=== PATIENT | male | born 1955 | race Caucasian/White ===

== ENCOUNTER 2017-05-16 09:20 | Day surgery (SDC) | payer OTHER ==
[2017-05-10 14:17] VITALS: BMI 26.6
[2017-05-16] MEDS ORDERED: CARBACHOL 0.01% INTRA-OCULAR 1.5 ML VIAL ONE (09:30)
[2017-05-16] MEDS ORDERED: BSS (NA/CA/MG/K) BALANCED SALT SOLUTION OPHTH SOLN 15 ML BOTTLE ONE (09:30)
[2017-05-16 09:51] VITALS: TEMP 97.5
[2017-05-16] MEDS: PHENYLEPHRINE 2.5% OPHTH SOLN 15 ML BOTTLE ONE ×3 (10:00→10:10)
[2017-05-16] MEDS: TROPICAMIDE 1% OPHTH SOLN 15 ML BOTTLE ONE ×3 (10:00→10:10)
[2017-05-16] MEDS: CIPROFLOXACIN 0.3% EYE DROPS 5 ML BOTTLE ONE ×2 (10:00→10:05)
[2017-05-16] MEDS: CYCLOPENTOLATE 2% OPHTH SOLN 2 ML BOTTLE ONE ×3 (10:00→10:10)
[2017-05-16] MEDS ORDERED: CIPROFLOXACIN 0.3% EYE DROPS 5 ML BOTTLE OS ONE (10:10)
[2017-05-16] MEDS ORDERED: MIDAZOLAM HCL 2 MG/2 ML SINGLE DOSE VIAL ONE (11:24)
[2017-05-16 12:40] VITALS: BP 98/68; PULSE 82
--- NOTE | 2017-05-16 16:07 | OP ---
DATE OF OPERATION: 05/16/2017 OPERATIVE PROCEDURE: Lens phacoemulsification with posterior chamber intraocular lens placement left eye. PREOPERATIVE DIAGNOSIS: Visually significant cataract of left eye. POSTOPERATIVE DIAGNOSIS: Visually significant cataract of left eye. SURGEON: Carter Owens M.D. ANESTHESIA: MAC PROCEDURE: The patient was brought to the operating room and placed under monitored anesthesia care by Anesthesia. A drop of tetracaine was then placed over the left eye. The patient was then prepped and draped in the usual sterile manner. A speculum was then placed over the left eye. The eye was then well irrigated with copious amounts of BSS (balanced salt solution). The operating microscope was then moved into position. A paracentesis was performed using a 15-degree blade. At this point 0.5 mL of 1% preservative-free lidocaine was injected into the anterior chamber. Amvisc Plus was then injected into the anterior chamber. A clear corneal incision was then formed using a 2.2-mm keratome. A capsulorrhexis was then performed in a continuous circular fashion beginning with a cystotome and completed with Utrata forceps. Hydrodissection was then performed using BSS on a cannula. The phaco probe was then introduced through the corneal wound, and the cataract was removed using the phaco-chop technique. Approximately 3 seconds of absolute phaco time was used. The remaining cortex was then removed using irrigation and aspiration with an I/A probe. The capsule was then filled with regular Amvisc, and the capsule was noted to be intact. A previously selected foldable posterior chamber intraocular lens was then injected into the capsule through the corneal wound using a lens injector. It was then dialed into position using a Sinskey hook. The Amvisc was then removed using irrigation and aspiration. Miostat was then injected through the paracentesis to constrict the pupil. The paracentesis and corneal wound were then hydrated and noted to be watertight. A drop of Maxitrol was then placed over the eye. The speculum was removed and clear shield was taped over the eye. The patient tolerated the procedure well, and there were no surgical complications. The patient was asked to follow up in my office the next day. CARTER OWENS M.D. [id number]
== END 2017-05-16 12:45 | disposition home or self-care (01) ==
LOC: FASU 09:20
PROVIDERS: ATTEND Ophthalmology
PROC: 08RK3JZ Replacement of Left Lens with Synthetic Substitute, Percutaneous Approach (ICD-10-PCS; principal; 2017-05-16 11:43)
DX: H26.8 Other specified cataract (principal)
CPT/HCPCS: 82962

== ENCOUNTER 2017-05-16 18:46 | Emergency (ER) | payer OTHER ==
[2017-05-16] MEDS ORDERED: ONDANSETRON *ODT* 4 MG TABLET SL ONE (19:01)
--- NOTE | 2017-05-16 19:01 | PDOC ---
History of Present Illness - General History Source: Patient Exam Limitations: No Limitations - History of Present Illness Initial Comments: 05/16/17 19:27 The patient is a 61 year old male, with a significant past medical history of autoimmune pancreatitis, diabetes, and hypertension, who presents to the emergency department, s/p cataract surgery at noon with nausea, vomiting, and dizziness. The patient reports that he has had similar symptoms before when on Fentanyl. He reports not eating before his four episodes of emesis. He denies any recent fevers, chills, headache or dizziness. He denies any recent nausea, vomit, diarrhea or constipation. He denies any recent chest pain or shortness of breath. He denies any recent dysuria, frequency, urgency or hematuria. PAST MEDICAL HISTORY: autoimmune pancreatitis, diabetes, and hypertension PAST SURGICAL HISTORY: pancreatic stent, cervical fusion FAMILY HISTORY: no pertinent history SOCIAL HISTORY: The patient works as an senior supplier quality engineer. He denies any tobacco use or recreational drug use. Social alcohol use. MEDICATIONS: reviewed ALLERGIES: As per nursing notes ROS: General: No fevers or chills, no weakness, no weight loss HEENT: No change in vision. No sore throat,. No ear pain CardioVascular: No chest pain or shortness of breath Respiratory:No cough, or wheezing. Gastrointestinal: +Nausea. +Vomiting. no diarrhea or constipation, No rectal bleeding Genitourinary: No dysuria, hematuria, or frequency Musculoskeletal: No joint or muscle pain or swelling Neurologic:+Dizziness. No headache, vertigo, or loss of consciousness Psychiatric: nor depression Skin: No rashes or easy bruising Endocrine: no increased thirst or abnormal weight change Allergic: no skin or latex allergy All other systems reviewed and normal Physical Exam: GENERAL: The patient is awake, alert, and fully oriented, in no acute distress. HEAD: Normal with no signs of trauma. EYES: +Dressing and eyeshield over the left eye. Pupils equal, round and reactive to light, extraocular movements intact, sclera anicteric, conjunctiva clear. EXTREMITIES: Normal range of motion, no edema. NEUROLOGICAL: Normal speech, normal gait. PSYCH: Normal mood, normal affect. SKIN: Warm, Dry, normal turgor, no rashes or lesions noted. <Ita Agarwal - Last Filed: 05/16/17 19:43> - General History Source: Patient Exam Limitations: No Limitations - History of Present Illness Initial Comments: A portion of this note was documented by scribe services under my direction. I have reviewed the details of the note, within reason, and agree with the documentation. The case summary and management plan written by me. Reevaluation patient feels much better post a liter of fluid and antiemetics no further vomiting able to tolerate by mouth's Assessment and plan: This is a 61-year-old male who came in with some postoperative nausea and vomiting. Patient was hydrated with fluids given anti- emetics feels better and discharged home with his . 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 Patient will follow-up with his surgeon tomorrow 05/16/17 20:40 <Javon Velez I - Last Filed: 05/16/17 20:41> - General Chief Complaint: Nausea Stated Complaint: NAUSEA,AFTER SURGICAL PROCEDURE Time Seen by Provider: 05/16/17 18:57 Past History <Ita Agarwal - Last Filed: 05/16/17 19:43> - Past Medical History Anemia: No Asthma: No Cancer: No Cardiac Disorders: No CVA: No COPD: No Diabetes: Yes GI Disorders: Yes (autoimune panreatitis) Disorders: Yes (enlarged prostate) HTN: Yes Hypercholesterolemia: Yes Liver Disease: No Seizures: No Thyroid Disease: No - Surgical History Abdominal Surgery: No Appendectomy: No Cardiac Surgery: No Cholecystectomy: No Lung Surgery: No Neurologic Surgery: Yes (cervical fusion,lower back sx) Orthopedic Surgery: Yes (lower back L4-L5) - Suicide/Smoking/Psychosocial Hx Smoking Status: No Smoking History: Never smoked Have you smoked in the past 12 months: No Number of Cigarettes Smoked Daily: 0 Hx Alcohol Use: Yes (rare) Drug/Substance Use Hx: No Substance Use Type: Alcohol Hx Substance Use Treatment: No <Javon Velez I - Last Filed: 05/16/17 20:41> - Past Medical History Allergies/Adverse Reactions: Allergies Allergy/AdvReac Type Severity Reaction Status Date / Time No Known Allergies Allergy Verified 05/16/17 10:02 Home Medications: Ambulatory Orders Rosuvastatin Calcium [Crestor] 20 mg PO HS 06/09/15 Amlodipine Besylate 5 mg PO DAILY 05/10/17 Glipizide 5 mg PO HS 05/10/17 Glipizide 15 mg PO AM 05/10/17 Ondansetron [Zofran *Odt*] 8 mg SL TID #8 od.tablet 05/16/17 *Physical Exam - Vital Signs Last Vital Signs Temp Pulse Resp BP Pulse Ox 97.5 F L 77 20 143/93 95 05/16/17 18:49 05/16/17 18:49 05/16/17 18:49 05/16/17 18:49 05/16/17 18:49 <Ita Agarwal - Last Filed: 05/16/17 19:43> ED Treatment Course - Medications Given in the ED: ED Medications Discontinued Medications Generic Name Dose Route Start Last Admin Trade Name Freq PRN Reason Stop Dose Admin Ondansetron HCl 8 mg 05/16/17 19:14 05/16/17 19:25 Zofran Injection IVPB 05/16/17 19:15 8 mg ONCE ONE Administration <Ita Agarwal - Last Filed: 05/16/17 19:43> *DC/Admit/Observation/Transfer - Attestations Scribe Attestion: 05/16/17 19:27 Documentation prepared by Ita Agarwal, acting as hospital medical assistant for Javon Velez MD. <Ita Agarwal - Last Filed: 05/16/17 19:43> - Discharge Dispostion Admit: No <Javon Velez I - Last Filed: 05/16/17 20:41> Diagnosis at time of Disposition: Postoperative nausea - Discharge Dispostion Disposition: HOME - Prescriptions Prescriptions: Ondansetron [Zofran *Odt*] 8 mg SL TID #8 od.tablet - Patient Instructions Additional Instructions: If you have any further nausea take Zofran 1 tablet as often as 3 times a day the Zofran can be dissolved under your tongue. Return to the emergency department immediately with ANY new, persistent or worsening symptoms. Continue any medications as previously prescribed by your physician. You should follow up with your primary doctor as soon as possible regarding today's emergency department visit. . Please make sure your doctor reviews the results of your emergency evaluation. Thank you for coming to the Emergency Department today for your care. It was a pleasure to see you today. Please note that your evaluation is INCOMPLETE until you follow-up with your doctor.
[2017-05-16 19:05] VITALS: BP 143/93; PULSE 77; TEMP 97.5; BMI 26.6
[2017-05-16] MEDS ORDERED: ONDANSETRON 4 MG/2 ML VIAL IVPB ONE (19:14)
[2017-05-16] MEDS ORDERED: SODIUM CHLORIDE 1,000 ML IV ONE (19:14)
[2017-05-16] MEDS ORDERED: ONDANSETRON 4 MG/2 ML VIAL ONE ×2 (19:14→19:22)
== END 2017-05-16 20:48 | disposition home or self-care (01) ==
LOC: FER 18:46
PROC: 3E033GC Introduction of Other Therapeutic Substance into Peripheral Vein, Percutaneous Approach (ICD-10-PCS; principal; 2017-05-16)
PROC: 3E0337Z Introduction of Electrolytic and Water Balance Substance into Peripheral Vein, Percutaneous Approach (ICD-10-PCS; 2017-05-16)
DX: T81.89XA Other complications of procedures, not elsewhere classified, initial encounter (principal); X58.XXXA Exposure to other specified factors, initial encounter; Y93.89 Activity, other specified; Y92.9 Unspecified place or not applicable; I10 Essential (primary) hypertension; E78.00 Pure hypercholesterolemia, unspecified
CPT/HCPCS: 99282-25

== ENCOUNTER 2017-05-30 06:22 | Day surgery (SDC) | payer OTHER ==
[2017-05-28 11:13] VITALS: BMI 26.6
[2017-05-30] MEDS: PHENYLEPHRINE 2.5% OPHTH SOLN 15 ML BOTTLE ONE ×3 (07:10→07:20)
[2017-05-30] MEDS: CIPROFLOXACIN 0.3% EYE DROPS 5 ML BOTTLE ONE ×3 (07:10→07:20)
[2017-05-30] MEDS: CYCLOPENTOLATE 2% OPHTH SOLN 2 ML BOTTLE ONE ×3 (07:10→07:20)
[2017-05-30] MEDS: TROPICAMIDE 1% OPHTH SOLN 15 ML BOTTLE ONE ×3 (07:10→07:20)
[2017-05-30] MEDS ORDERED: ACETYLCHOLINE 1:100 INTRA-OCUL 20 MG/2 ML KIT ONE (07:12)
[2017-05-30] MEDS ORDERED: LIDOCAINE 1% P/F 10 MG/ML VIAL ONE (07:12)
[2017-05-30] MEDS ORDERED: BSS (NA/CA/MG/K) BALANCED SALT SOLUTION OPHTH SOLN 15 ML BOTTLE ONE (07:12)
[2017-05-30] MEDS ORDERED: CARBACHOL 0.01% INTRA-OCULAR 1.5 ML VIAL ONE (07:12)
[2017-05-30] MEDS ORDERED: TETRACAINE 0.5% OPHTH SOLN 2 ML BOTTLE ONE (07:12)
[2017-05-30] MEDS ORDERED: NEO/POLYMYX B SULF/DEXAMETH OPHTHALMIC 5ML BOTTLE ONE ×2 (07:13→07:45)
[2017-05-30] MEDS ORDERED: EPINEPHrine 1:1,000 1 MG/1 ML - 30ML VIAL (INJECTION) ONE (07:32)
[2017-05-30] MEDS ORDERED: LIDOCAINE HCL 2% JELLY 10 ML CARTRIDGE ONE (08:10)
[2017-05-30] MEDS ORDERED: FAMOTIDINE 20 MG/50 ML IVPB 20 MG/50 ML MG IVPB ONE (08:12)
[2017-05-30] MEDS ORDERED: ONDANSETRON 4 MG/2 ML VIAL ONE (08:20)
[2017-05-30] MEDS ORDERED: DEXAMETHASONE SOD PHOSPHATE 4 MG/1 ML VIAL ONE (08:20)
[2017-05-30 09:14] VITALS: BP 110/74; PULSE 74; TEMP 98.2
--- NOTE | 2017-05-30 09:45 | OP ---
DATE OF OPERATION: 05/30/2017 OPERATIVE PROCEDURE: Lens Phacoemulsification with Posterior Chamber Intraocular Lens Placement, Right Eye PREOPERATIVE DIAGNOSIS: Visually Significant Cataract of Right Eye POSTOPERATIVE DIAGNOSIS: Visually Significant Cataract of Right Eye SURGEON: Carter Owens M.D. ANESTHESIA: MAC ANESTHESIOLOGIST: PROCEDURE: The patient was brought to the operating room and placed under monitored anesthesia care by Anesthesia. A drop of Tetracaine was then placed over the right eye. The patient was then prepped and draped in the usual sterile manner. A speculum was then placed over the right eye. The eye was then well irrigated with copious amounts of BSS (balanced salt solution). The operating microscope was then moved into position. A paracentesis was performed using a 15 degree blade. At this point 0.5 mL of 1% preservative free-lidocaine was injected into the anterior chamber. Amvisc plus was then injected into the anterior chamber. A clear corneal incision was then formed using a 2.2 mm keratome. A capsulorrhexis was then performed in a continuous circular fashion beginning with a cystotome completed with an Utratas forceps. Hydrodissection was then performed using BSS on a cannula. The phaco probe was then introduced through the corneal wound and the cataract was removed using the phaco chop technique. Approximately 3 seconds of absolute phaco time was used. The remaining cortex was then removed using irrigation and aspiration with an I/A probe. The capsule was then filled with regular Amvisc and the capsule was noted to be intact. A previously selected foldable posterior chamber intraocular lens was then injected into the capsule through the corneal wound using a lens injector. It was then dialed into position using a [place] hook. The Amvisc was then removed using irrigation and aspiration. Miostat was then injected through the paracentesis to constrict the pupil. The paracentesis and corneal wound were then hydrated and noted to be water tight. A drop of Maxitrol was then placed over the eye. The speculum was removed and clear shield was taped over the eye. The patient tolerated the procedure well and there were no surgical complications. The patient was asked to follow up in my office the next day. CARTER OWENS M.D. [id number]
== END 2017-05-30 09:16 | disposition home or self-care (01) ==
LOC: FASU 06:22
PROVIDERS: ATTEND Ophthalmology
PROC: 08RJ3JZ Replacement of Right Lens with Synthetic Substitute, Percutaneous Approach (ICD-10-PCS; principal; 2017-05-30 08:00)
DX: H26.8 Other specified cataract (principal)
CPT/HCPCS: 82962

== ENCOUNTER 2018-01-18 14:14 | Emergency (ER) | payer OTHER ==
[2018-01-18 14:23] VITALS: TEMP 98.5; BMI 25.8
[2018-01-18 14:56] LABS: BASO % 0.5 % (0-2.0); EOS % 4.9 % (0-4.5); HEMATOCRIT 44.6 % (35.4-49); HEMOGLOBIN 14.4 GM/dl (11.7-16.9); LYMPH % 34.4 % (8-40); MCHC 32.2 g/dl (32.0-35.9); MEAN CELL VOLUME 80.6 fl (80-96); MEAN PLT VOLUME 8.7 fl (7.5-11.1); MONO % 7.2 % (3.8-10.2); PLATELET COUNT 176 K/MM3 (134-434); RBC 5.53 M/mm3 (4.00-5.60); WHITE BLOOD COUNT 6.1 K/mm3 (4.0-10.8)
--- NOTE | 2018-01-18 15:15 | PDOC ---
History of Present Illness - General Chief Complaint: Chest Pain Stated Complaint: CHEST PAIN Time Seen by Provider: 01/18/18 14:17 - History of Present Illness Initial Comments: 01/18/18 14:49 62 M with h/o HTN, DM, HLD, autoimmune pancreatitis presenting to ED with chest pain. Pt states that the chest pain began last night after an argument with his daughter. He describes it as intermittent sharp pain, not exertional, not pleuritic. Denies SOB. Denies cough. Denies F/C. Denies leg swelling. Pt states that this feels different from his pancreatitis but does endorse having some epigastric burning at the time. He currently reports that the pain has subsided , denies any complaints at this time. Past History - Past Medical History Allergies/Adverse Reactions: Allergies Allergy/AdvReac Type Severity Reaction Status Date / Time midazolam [From Versed] AdvReac Severe Vomiting Verified 05/30/17 07:06 Home Medications: Ambulatory Orders Rosuvastatin Calcium [Crestor] 20 mg PO HS 06/09/15 Amlodipine Besylate 5 mg PO DAILY 05/10/17 Glipizide 5 mg PO HS 05/10/17 Glipizide 15 mg PO AM 05/10/17 Anemia: No Asthma: No Cancer: No Cardiac Disorders: No CVA: No COPD: No CHF: No Dementia: No Diabetes: Yes GI Disorders: Yes (autoimune pancreatitis) Disorders: Yes (enlarged prostate) HTN: Yes Hypercholesterolemia: Yes Liver Disease: No Seizures: No Thyroid Disease: No - Surgical History Abdominal Surgery: No Appendectomy: No Cardiac Surgery: No Cholecystectomy: No Lung Surgery: No Neurologic Surgery: Yes (cervical fusion,lower back sx) Orthopedic Surgery: Yes (lower back L4-L5) - Suicide/Smoking/Psychosocial Hx Smoking Status: No Smoking History: Never smoked Have you smoked in the past 12 months: No Number of Cigarettes Smoked Daily: 0 Information on smoking cessation initiated: No Hx Alcohol Use: No Drug/Substance Use Hx: No Substance Use Type: Alcohol Hx Substance Use Treatment: No Cardiac Specific PMH - Complaint Specific PMHX Pacemaker: No Review of Systems - Review of Systems Comments:: 01/18/18 15:15 GENERAL/CONSTITUTIONAL: No fever or chills. No weakness. HEAD, EYES, EARS, NOSE AND THROAT: No change in vision. No ear pain or discharge. No sore throat. CARDIOVASCULAR: + chest pain, no shortness of breath. RESPIRATORY: No cough, wheezing, or hemoptysis. GASTROINTESTINAL: No nausea, vomiting, diarrhea or constipation. GENITOURINARY: No dysuria, frequency, or change in urination. MUSCULOSKELETAL: No joint or muscle swelling or pain. No neck or back pain. SKIN: No rash NEUROLOGIC: No headache, vertigo, loss of consciousness, or change in strength/ sensation. ENDOCRINE: No increased thirst. No abnormal weight change. HEMATOLOGIC/LYMPHATIC: No anemia, easy bleeding, or history of blood clots. ALLERGIC/IMMUNOLOGIC: No hives or skin allergy. *Physical Exam - Vital Signs Last Vital Signs Temp Pulse Resp BP Pulse Ox 98.5 F 79 18 118/68 99 01/18/18 18:52 01/18/18 18:52 01/18/18 18:52 01/18/18 18:52 01/18/18 18:52 - Physical Exam Comments: 01/18/18 15:16 "GENERAL: Awake, alert, and fully oriented, in no acute distress. HEAD: No signs of trauma EYES: PERRLA, EOMI, sclera anicteric, conjunctiva clear ENT: Auricles normal inspection, hearing grossly normal, nares patent, oropharynx clear without exudates. Moist mucosa NECK: Nontender, no stepoffs, Normal ROM, supple, no lymphadenopathy, JVD, or masses LUNGS: Breath sounds equal, clear to auscultation bilaterally. No wheezes, and no crackles HEART: Regular rate and rhythm, normal S1 and S2, no murmurs, rubs or gallops ABDOMEN: Soft, nontender, normoactive bowel sounds. No guarding, no rebound. No masses EXTREMITIES: Normal range of motion, no edema. No clubbing or cyanosis. No cords, erythema, or tenderness NEUROLOGICAL: Cranial nerves II through XII intact. 5/5 strength and sensation in all extremities, Normal speech, normal gait, normal cerebellar function SKIN: Warm, Dry, normal turgor, no rashes or lesions noted." Heart Score/ECG Review - History History: Slightly suspicious - Electrocardiogram EKG: Normal - Age Age: 45-65 - Risk Factors Risk Factors Heart Score: Yes Hx Hypercholesterolemia, Yes Hx Hypertension, Yes Hx Diabetes, Yes Positive family hx of cardiac disease Based on the list above the patient has:: >/=3 risk factors or Hx atherosclerotic disease - Troponin Troponin: </= normal limit - Score Heart Score - Total: 3 - ECG Impressions Comment:: 01/18/18 15:16 NSR, no HOLLIE/STDs, no TWIs, axis wnl, intervals wnl, rate 86 ED Treatment Course - LABORATORY CBC & Chemistry Diagram: 01/18/18 14:30 01/18/18 14:30 - ADDITIONAL ORDERS Additional order review: 01/18/18 14:30 RBC 5.53 MCV 80.6 MCHC 32.2 RDW 13.0 MPV 8.7 Neutrophils % 53.0 Lymphocytes % 34.4 Monocytes % 7.2 Eosinophils % 4.9 H Basophils % 0.5 - RADIOLOGY Radiology Studies Ordered: Category Date Time Status CHEST PA & LAT [RAD] Stat Radiology 01/18/18 14:31 Completed - Medications Given in the ED: ED Medications Discontinued Medications Generic Name Dose Route Start Last Admin Trade Name Freq PRN Reason Stop Dose Admin Potassium Chloride 40 meq 01/18/18 15:53 01/18/18 15:57 K-Dur - PO 01/18/18 15:54 40 meq ONCE ONE Administration Medical Decision Making - Medical Decision Making 01/18/18 15:17 62 M with intermittent chest pain, now resolved. Pt with nonischemic EKG. Will r /o ACS with serial trops. Pt with no DVT risk factors and normal vitals, making PE unlikely. Will also r/o PNA with CXR. Also consider pancreatitis flare, though pt with benign abdomen. - Labs, tropx2, lipase - CXR 01/18/18 18:02 Labs wnl, trop negative x2 Pt reassessed - continues to be asymptomatic with no recurrent chest pain. Pt's HEART score 3. Pt is well appearing, with normal vitals. Clinically stable for DC at this time. I discussed the physical exam findings, ancillary test results and final diagnoses with the patient. I answered all of the patient's questions. The patient was satisfied with the care received and felt comfortable with the discharge plan and treatment plan. The patient agrees to follow up with the primary care physician within 24-72 hours. *DC/Admit/Observation/Transfer Diagnosis at time of Disposition: Atypical chest pain - Discharge Dispostion Disposition: HOME Condition at time of disposition: Stable - Referrals Referrals: Drew Pfeiffer MD [Staff Physician] - - Patient Instructions Printed Discharge Instructions: DI for Atypical Chest Pain Additional Instructions: Your labs today were normal. However, this does not rule out all heart disease. You must follow up with your air conditioning coil assembler within 48 hours for further evaluation of your chest pain. Call the number provided to make an appointment with our air conditioning coil assembler if you do not have one. If you experience worsening chest pain, shortness of breath, or any other concerning symptoms, return to the ER immediately. - Post Discharge Activity - Attestations Physician Attestion: 01/18/18 18:01 I, Dr. Dionicio Mark MD, attest that this document has been prepared under my direction and personally reviewed by me in its entirety. I further attest, that it accurately reflects all work, treatment, procedures and medical decision -making performed by me.
[2018-01-18 15:31] LABS: ALK PHOS 43 U/L (32-92); ANION GAP 7 MMOL/L (8-16); BILIRUBIN,TOTAL 1.1 mg/dl (0.2-1.0); BLOOD UREA NITROGEN 22 mg/dl (7-18); CALCIUM 8.8 mg/dl (8.4-10.2); CHLORIDE 102 mmol/L (98-107); CO2 29 mmol/L (22-28); CREATININE 1.2 mg/dl (0.6-1.3); GLUCOSE,RANDOM 182 mg/dl (74-106); POTASSIUM 3.2 mmol/L (3.5-5.1); SGOT/AST 27 U/L (10-42); SGPT/ALT 20 U/L (10-40); SODIUM 138 mmol/L (136-145)
[2018-01-18] MEDS ORDERED: POTASSIUM CHLORIDE TABS 20 MEQ TABLET.ER (FP) PO ONE ×2 (15:53→15:54)
[2018-01-18 18:54] VITALS: BP 118/68; PULSE 79
--- NOTE | 2018-01-20 22:25 | EKG ---
Test Reason : Blood Pressure : / mmHG Vent. Rate : 086 BPM Atrial Rate : 086 BPM P-R Int : 190 ms QRS Dur : 120 ms QT Int : 380 ms P-R-T Axes : 063 -05 012 degrees QTc Int : 454 ms SINUS RHYTHM WITH OCCASIONAL PREMATURE VENTRICULAR COMPLEXES NON-SPECIFIC INTRA-VENTRICULAR CONDUCTION DELAY BORDERLINE ECG NO PREVIOUS ECGS AVAILABLE Confirmed by KRISSY TRIPP MD ([id number]) on 01/20/2018 10:25:24 PM Referred By: SHANNON MALDONADO Confirmed By:KRISSY TRIPP MD
== END 2018-01-18 19:00 | disposition home or self-care (01) ==
LOC: FER 14:14
DX: R07.89 Other chest pain (principal); I10 Essential (primary) hypertension; E78.00 Pure hypercholesterolemia, unspecified; E11.9 Type 2 diabetes mellitus without complications; K85.90 Acute pancreatitis without necrosis or infection, unspecified
CPT/HCPCS: 36415; 71046-TC-FY; 80053; 82550; 83690; 84484; 85025; 93005; 99285-25

== ENCOUNTER 2018-03-26 06:03 | Day surgery (SDC) | payer OTHER ==
[2018-03-19 14:43] VITALS: BMI 25.4
[2018-03-26] MEDS ORDERED: ERYTHROMYCIN 0.5% OPHTHALMIC OINTMENT 3.5 GM TUBE ONE (07:24)
[2018-03-26] MEDS ORDERED: TETRACAINE 0.5% OPHTH SOLN 2 ML BOTTLE ONE (07:24)
[2018-03-26] MEDS ORDERED: LIDOCAINE 1%/EPI 1:100000 (20 ML MULTI DOSE VIAL) ONE (07:25)
[2018-03-26] MEDS ORDERED: POVIDONE-IODINE 5% OPHTHALMIC PREP 30 ML SOLUTION ONE (07:25)
[2018-03-26] MEDS ORDERED: SCOPOLAMINE HYDROBROMIDE 1 PATCH PATCH.TD72 ONE (07:28)
[2018-03-26] MEDS ORDERED: SUCCINYLCHOLINE CHLORIDE 200 MG/10 ML VIAL ONE (07:54)
[2018-03-26] MEDS ORDERED: PROPOFOL 20 ML ONE ×3 (07:54→09:00)
[2018-03-26] MEDS ORDERED: DEXMEDETOMIDINE HCL 200 MCG/2 ML ML IVPB ONE (08:52)
[2018-03-26] MEDS ORDERED: ONDANSETRON 4 MG/2 ML VIAL ONE (09:02)
[2018-03-26] MEDS ORDERED: DEXAMETHASONE SOD PHOSPHATE 4 MG/1 ML VIAL ONE (09:02)
[2018-03-26] MEDS ORDERED: LIDOCAINE HCL/PF 2% SDV 5ML VIAL ONE (09:02)
[2018-03-26] MEDS ORDERED: PROMETHAZINE HCL 25 MG/1 ML VIAL IVPUSH PRN (10:07)
[2018-03-26] MEDS ORDERED: ACETAMINOPHEN 325 MG TABLET (FP) PO PRN (10:07)
--- NOTE | 2018-03-26 11:33 | OP ---
DATE OF OPERATION: 03/26/2018 PREOPERATIVE DIAGNOSIS: Ptosis with visual obstruction, both upper lids, dermatochalasis, as well, brow ptosis, temporal hooding. PROCEDURE: 1. Levator advancement reattachment, right upper lid. 2. Levator advancement reattachment, left upper lid. 3. Blepharoplasty, bilateral upper lids with temporal browpexy. SURGEON: Dayami Wolfe MD ANESTHESIA: Local with sedation. COMPLICATONS: None. ESTIMATED BLOOD LOSS: 3 mL. OPERATION REPORT: Patient was brought to the operating room, placed on the operating room table. Vital signs monitored by Anesthesia. Extended the temporal lid was marked preoperatively in the holding area. Tetracaine was placed in both eyes, and lid crease was marked symmetrically approximately 9-10 mm above the central lid margin tapering from the punctum and tapering temporally as well out to the temporal liu extent. Then, 12 mm was measured from the inferior brow leaving at least 12 mm of skin between the inferior brow and the superior edge of the ellipse. These ellipses were marked out on both eyes with the patient in the supine position extending to the previously marked temporal extent of the liu. Patient time-out was performed, and, then, 2% Xylocaine with 1:100,000 epinephrine was injected subcutaneously, a total of 1 mL, and all of the ellipses in both upper eyelids. The patient was prepped and draped in the sterile fashion. The creases were then incised in the appropriate fashion to be relatively symmetric. Then, the superior edge of the ellipse was excised, and the skin was removed with a [place] needle, and hemostasis was achieved with a [place] needle. The marked temporal brow ptosis with the tail of brow pointing downwards contributing to dermatochalasis and temporal hooding. Incision was made through orbicularis at the superior orbital rim, and this was dissected under the orbicularis superiorly for the length of approximately 1 cm. Using it with Moses scissors, hemostasis was achieved with a [place] needle. Antibiotic irrigation was used copiously throughout the case. Then, 4-0 Prolene was passed through the inferior edge of the brow, and then, marked the inferior edge of the brow on the internal surface. It was then passed through the periosteum above the superolateral orbital rim, and then, it was passed back through the muscle layer underneath the brow to create a browpexy, the original pass being released, and it was tied with a slipknot. This was performed bilaterally completing the blepharoplasty and the browpexy, but the pexy incisions were not yet tied. At this point, the orbicularis was incised above the tarsus and dissected slightly superiorly in the preseptal plane, and the septum was widely opened exposing the preaponeurotic running fat. Preaponeurotic running fat was then retracted, exposing the levator, which dehisced at both eyelids. The suborbicularis plane was dissected inferiorly, exposing anterior superior tarsus, and each levator was now reattached and resected partially with a mattress 6-0 Vicryl suture and supplemental single 6-0 Vicryl suture. These were placed to create a symmetric contour and lid height approximately 2-3 mm above the lid visual axis, and the patient was placed in the upright position multiple times after anesthetic effect had worn off in order to adjust the sutures and adjust the lid height. Once this was felt to be appropriate, the patient was placed in supine position, the Vicryl sutures were tied, the lids were everted demonstrating no penetration of the suture. The excess levator was resected in both eyelids. There was meticulous hemostasis. Antibiotic irrigation was again performed. At this point, the browpexies were tied, and patient was placed in upright position to assess their position, and there was small additional amount of skin in the left upper lid that needed to be excised, and this was performed after a little supplemental anesthesia, approximately 1 more mm central and temporal skin was removed in the left eye, and then the skin was closed after antibiotic irrigation and hemostasis with running and interrupted 6-0 nylon suture and plastic technique. Erythromycin ointment was placed on the sutures, and patient was taken to the recovery room in stable condition. DAYAMI WOLFE M.D. [id number]
[2018-03-26 12:07] VITALS: BP 105/65; PULSE 61; TEMP 98.7
== END 2018-03-26 11:45 | disposition home or self-care (01) ==
LOC: FASU 06:03
PROVIDERS: ATTEND Ophthalmology
PROC: 08SN0ZZ Reposition Right Upper Eyelid, Open Approach (ICD-10-PCS; 2018-03-26)
PROC: 08SP0ZZ Reposition Left Upper Eyelid, Open Approach (ICD-10-PCS; principal; 2018-03-26 09:00)
DX: H02.403 Unspecified ptosis of bilateral eyelids (principal); H57.813 Brow ptosis, bilateral; H02.831 Dermatochalasis of right upper eyelid; H02.834 Dermatochalasis of left upper eyelid
CPT/HCPCS: 82962; 94760